=== PATIENT | female | born 2000 | race Hispanic/Latino ===

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

== ENCOUNTER 2024-05-26 19:30 | Emergency (ER) | payer OTHER ==
[~2024-05-26] VITALS: Ht 167.6 cm; Wt 116.1 kg
[~2024-05-26 19:30] MED LIST: FLUTICASONE PRO16 GM INH; MEDROXYPROGESTE10 MG PO; TAMIFLU75 MG PO; VENTOLIN HFA18 GM INH
[2024-05-26 19:40] VITALS: PULSE 139; RESP 22; TEMP 102.9
[2024-05-26] MEDS: IBUPROFEN 600 MG TAB PO STA (20:08)
[2024-05-26 20:25] LABS: STREPTOCOCCUS GRP A ANTIGEN NEGATIVE (NEGATIVE)
[2024-05-26 20:27] LABS: CORONAVIRUS COVID-19 AG NEGATIVE (NEGATIVE); INFLUENZA A AG POSITIVE (NEGATIVE); INFLUENZA B AG NEGATIVE (NEGATIVE)
[2024-05-26 21:38] VITALS: BP 130/74; PULSE 119; RESP 20; TEMP 101.1; O2SAT 99
== END 2024-05-26 21:20 | disposition home or self-care (01) ==
LOC: ER 19:55
DX: R50.9 Fever, unspecified (principal); J10.1 Influenza due to other identified influenza virus with other respiratory manifestations; R05.9 Cough, unspecified; D64.9 Anemia, unspecified; Z11.52 Encounter for screening for COVID-19
CPT/HCPCS: 71045; 83518; 87070; 99283